=== PATIENT | female | born 1975 | race Asian ===

== ENCOUNTER 2018-11-22 16:01 | Emergency (ER) | payer SELFPAY ==
[~2018-11-22] VITALS: Ht 170.2 cm; Wt 65.3 kg
[2018-11-22] MEDS ORDERED: ONDANSETRON HCL 4 MG/2 ML VIAL IV ONE (17:00)
[2018-11-22] MEDS ORDERED: HYDROmorphone HCL 2 MG/ML VL IV ONE (17:00)
[2018-11-22] MEDS ORDERED: ETOMIDATE (2MG/ML) 20ML VIAL IV ONE ×2 (17:05→17:15)
[2018-11-22 18:48] VITALS: BP 108/67
== END 2018-11-22 19:11 | disposition home or self-care (01) ==
LOC: EDBD 16:01 → ER 16:15
DX: S73.015A Posterior dislocation of left hip, initial encounter (principal); Z88.0 Allergy status to penicillin; W19.XXXA Unspecified fall, initial encounter; Y93.23 Activity, snow (alpine) (downhill) skiing, snowboarding, sledding, tobogganing and snow tubing; Y99.8 Other external cause status; Y92.89 Other specified places as the place of occurrence of the external cause
CPT/HCPCS: 27250; 72170; 73700; 94761; 99152